=== PATIENT | male | born 1995 | race Caucasian/White ===

== ENCOUNTER 2017-06-15 22:31 | Emergency (ER) | payer OTHER ==
[~2017-06-15] VITALS: Ht 170.2 cm; Wt 81.2 kg
[2017-06-15 22:36] VITALS: BP 147/87
--- NOTE | 2017-06-15 22:57 | NUR ---
PT.AMBULATES TO ER BED 8
--- NOTE | 2017-06-15 22:57 | NUR ---
21 Y/O M W/C/O DRY/NONPRODUCTIVE COUGH, AND SORETHROAT X 1 WK. PT DENIES ANY FEVER, OR MED HX. SPO2 97 RA, LUGS CLEAR BILATERAL. NO OTHER S/S OF DISTRESS NOTED AT THE MOMENT. ER MADE AWARE.
--- NOTE | 2017-06-15 23:15 | NUR ---
Patient being evaluated by physician at bedside.
--- NOTE | 2017-06-15 23:55 | NUR ---
Patient discharged with v/s stable. Written and verbal after care instructions given and explained. Patient alert, oriented and verbalized understanding of instructions. Ambulatory with steady gait. All questions addressed prior to discharge. ID band removed. Patient advised to follow up with PMD. Rx of AMOXICILLIN 500 MG, PROMETHAZINE/DEXTROMETHROPHAN 6.25MG/15MG/5ML, BLEPH 10 10% OPHTHALMIC SOLUSION given. Patient educated on indication of medication including possible reaction and side effects. Opportunity to ask questions provided and answered.
[2017-06-15 23:59] VITALS: BP 126/80
== END 2017-06-15 23:55 | disposition home or self-care (01) ==
LOC: MED 22:31
DX: H10.9 Unspecified conjunctivitis (principal); J02.9 Acute pharyngitis, unspecified
CPT/HCPCS: 99283